=== PATIENT | male | born 1980 | race Caucasian/White ===

== ENCOUNTER 2017-10-25 02:16 | Emergency (ER) | payer BC ==
[2017-10-25] MEDS: LIDOCAINE 1% (MDV) 10 ML INJ INFIL (03:33)
== END 2017-10-25 04:40 | disposition home or self-care (01) ==
LOC: FTE 02:16
DX: S61.412A Laceration without foreign body of left hand, initial encounter (principal); W26.9XXA Contact with unspecified sharp object(s), initial encounter; Y92.9 Unspecified place or not applicable
CPT/HCPCS: 12002; 99284-25